=== PATIENT | male | born 1960 | race Caucasian/White ===

== ENCOUNTER → 2020-09-08 | Outpatient (CLI) | payer OTHER ==
--- NOTE | 2020-09-08 10:10 | REP ---
INDICATION: FOLLOW UP/PSORIATIC ARTHRITIS COMPARISON: None. TECHNIQUE: AP, lateral, bilateral oblique views of the right and left ankle. FINDINGS: Right ankle is age-appropriate and without evidence for prior injury, osteoarthritic or inflammatory arthritic changes. Left ankle demonstrates small corticated densities at the medial malleolus suggesting old fracture and is otherwise normal in appearance without evidence for osteoarthritic or inflammatory arthritic changes. IMPRESSION: No evidence for osteoarthritic or inflammatory arthritic changes. Old healed left medial malleolus fracture noted. <Electronically signed by Sachin Manley > 09/08/20 [id number]
--- NOTE | 2020-09-08 10:11 | REP ---
INDICATION: FOLLOW UP/PSORIATIC ARTHRITIS COMPARISON: None. TECHNIQUE: AP, lateral, bilateral oblique views right and left foot. FINDINGS: The osseous structures and joint spaces are intact and normal bilaterally. There is no evidence for acute or healed injury. No evidence for osteoarthritic or inflammatory arthritic changes. Surrounding soft tissues are unremarkable. IMPRESSION: Normal age-appropriate bilateral foot radiographs. No evidence for osteoarthritic or inflammatory arthritic changes. <Electronically signed by Sachin Manley > 09/08/20 1007
== END ==
LOC: M RAD 08:51
PROVIDERS: ATTEND Surgery
DX: M19.90 Unspecified osteoarthritis, unspecified site (principal)

== ENCOUNTER → 2020-09-15 | Outpatient (CLI) | payer OTHER ==
--- NOTE | 2020-09-16 05:49 | REP ---
INDICATION: RIGHT SHOULDER PAIN COMPARISON: None. TECHNIQUE: Internal rotation, external rotation, and Y view. FINDINGS: No acute fracture or dislocation. The acromioclavicular and glenohumeral joints are intact. External rotation view suggests a small 4 mm calcified chronic density inferior to the glenoid which should be correlated clinically. IMPRESSION: Relatively normal examination. A small 4 mm corticated chronic density is identified inferior to the glenoid rim. <Electronically signed by Sachin Manley > 09/16/20 [id number]
== END ==
LOC: M RAD 08:37
PROVIDERS: ATTEND Surgery
DX: M25.511 Pain in right shoulder (principal)

== ENCOUNTER 2020-10-25 09:14 | Emergency (ER) | payer OTHER ==
[~2020-10-25] VITALS: Ht 172.7 cm; Wt 86.4 kg
[2020-10-25] MEDS ORDERED: GI COCKTAIL 50ML BTL(HYOSCYAMINE/MAALOX/LIDOCAINE VISCOUS)(1:3:1) PO ONE (09:30)
[2020-10-25 10:08] LABS: BASO % 0.5 % (0.0-1.0); EOS # 0.1 10^3/uL (0.0-0.5); EOS % 1.4 % (0.0-3.0); HEMATOCRIT 44.4 % (42.0-52.0); HEMOGLOBIN 14.3 g/dl (13.5-17.5); LYMPH % 27.2 % (24.0-44.0); MEAN CORPUSCULAR HEMOGLOBIN 27.6 pg (27.0-33.0); MEAN CORPUSCULAR HGB CONC 32.2 g/dl (32.0-36.5); MEAN CORPUSCULAR VOLUME 85.7 fl (80.0-96.0); MONO # 0.8 10^3/uL (0.0-0.8); MONO % 10.7 % (0.0-5.0); NEUTROPHILS # 4.4 10^3/uL (1.5-8.5); NEUTROPHILS % 59.8 % (36.0-66.0); PLATELET COUNT, AUTOMATED 220 10^3/uL (150-450); RED BLOOD COUNT 5.18 10^6/uL (4.30-6.10); WHITE BLOOD COUNT 7.3 10^3/uL (4.0-10.0)
[2020-10-25 10:22] LABS: INR 0.97; PROTHROMBIN TIME 13.1 SECONDS (12.5-14.3)
[2020-10-25 10:24] LABS: ERYTHROCYTE SEDIMENTATION RATE 5 mm/hr (0-20)
[2020-10-25 10:41] LABS: ALBUMIN 3.6 GM/DL (3.2-5.2); ALT/SGPT 35 U/L (12-78); BILIRUBIN,DIRECT 0.2 MG/DL (0.0-0.2); BILIRUBIN,TOTAL 0.6 MG/DL (0.2-1.0); BLOOD UREA NITROGEN 16 MG/DL (7-18); CALCIUM LEVEL 8.9 MG/DL (8.5-10.1); CARBON DIOXIDE LEVEL 29 MEQ/L (21-32); CHLORIDE LEVEL 105 MEQ/L (98-107); CK-MB VALUE MASS 2.4 NG/ML (<3.6); CPK CREATINE PHOSPHOKINASE 118 U/L (39-308); CREATININE FOR GFR 0.88 MG/DL (0.70-1.30); FREE T4 1.03 NG/DL (0.76-1.46); GLOMERULAR FILTRATION RATE > 60.0 (>56); GLUCOSE, FASTING 108 MG/DL (70-100); LIPASE 101 U/L (73-393); MB/CK RELATIVE INDEX 2.03 (< OR =4); NT-PRO BNP 40 PG/ML (<125); POTASSIUM SERUM 4.3 MEQ/L (3.5-5.1); SODIUM LEVEL 138 MEQ/L (136-145); TOTAL PROTEIN 6.8 GM/DL (6.4-8.2); TROPONIN I < 0.02 NG/ML (< 0.10)
--- NOTE | 2020-10-25 11:06 | REP ---
INDICATION: CHEST PAIN. COMPARISON: None. TECHNIQUE: Single AP portable chest with the patient sitting. FINDINGS: The lung hewitt are clear. The cardiac size is normal. The francisco, mediastinum, and skeletal structures are unremarkable. IMPRESSION: Negative portable chest. <Electronically signed by Aroldo Marte > 10/25/20 1104
[2020-10-25] MEDS ORDERED: ISOVUE-370 76% 100ML VIAL As Ordered ONE (11:37)
[2020-10-25] MEDS ORDERED: KETOROLAC 30 MG/ML 1ML VIAL IV ONE (11:45)
[2020-10-25 11:51] LABS: VITAMIN B12 LEVEL 496 PG/ML (247-911)
--- NOTE | 2020-10-25 11:59 | REP ---
INDICATION: left sided chest pain. COMPARISON: Comparison is made with today's portable chest x-ray.. TECHNIQUE: Contrast dose: 75 ML of Isovue [address] technique: Helical scanning is acquired and overlapping 1.5 mm and contiguous 3 mm axial images are reformatted. In addition, maximum intensity projection and multiplanar re-formation images are generated in sagittal and coronal imaging projections. FINDINGS: There is good opacification in the pulmonary arterial tree. There is no evidence of vessel cut off or filling defect to suggest pulmonary embolus. Homogeneous opacity is seen in the thoracic aorta. There is no evidence of aneurysm or dissection. Lung window settings demonstrate no evidence of infiltrate, mass, or significant pulmonary nodule. No pleural or pericardial effusion is seen. No hilar or mediastinal mass or adenopathy is observed. In the upper abdomen, there is no significant abnormality. Bone window settings show no evidence of bony destructive lesion. IMPRESSION: No CT evidence of pulmonary embolus. No active cardiopulmonary disease seen. <Electronically signed by Jose De Jesus Dawkins > 10/25/20 [id number]
[2020-10-25 14:08] LABS: AMPHETAMINES LEVEL URINE NEGATIVE (NEGATIVE); BARBITURATES URINE NEGATIVE (NEGATIVE); BENZODIAZEPINES URINE NEGATIVE (NEGATIVE); CANNABINOIDS URINE NEGATIVE (NEGATIVE); COCAINE METABOLITE URINE NEGATIVE (NEGATIVE); METHADONE URINE NEGATIVE (NEGATIVE); OPIATES URINE NEGATIVE (NEGATIVE); PHENCYCLIDINE URINE NEGATIVE (NEGATIVE)
[2020-10-25 14:47] LABS: CK-MB VALUE MASS 1.8 NG/ML (<3.6); CPK CREATINE PHOSPHOKINASE 102 U/L (39-308); MB/CK RELATIVE INDEX 1.76 (< OR =4); TROPONIN I < 0.02 NG/ML (< 0.10)
[2020-10-25] MEDS ORDERED: KETO10TAB PO (15:10)
[2020-10-25] MEDS ORDERED: CYCL5TAB PO (15:10)
[2020-10-25 16:07] VITALS: BP 178/100
--- NOTE | 2020-10-26 00:32 | ECGEPIP ---
[facility] - ED Test Date: 2020-10-25 Pat Name: LUISA BOYD Department: Room: - Gender: Male Director Of Rehabilitation: margarita : 1960 Requested By: ZEUS Montejo Order Number: [id number] Reading MD: Edwin Ritter Measurements Intervals [place] Rate: 57 P: 24 KS: 150 QRS: -43 QRSD: 134 T: 16 QT: 428 QTc: 420 Interpretive Statements SINUS BRADYCARDIA MARKED LEFT AXIS DEVIATION RIGHT BUNDLE BRANCH BLOCK NO PRIORS FOR COMPARISON Electronically Signed on 10-26-2020 0:31:51 EST by Edwin Ritter
--- NOTE | 2020-10-26 00:41 | ECGEPIP ---
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
== END 2020-10-25 16:11 | disposition home or self-care (01) ==
LOC: M ED 09:14
DX: R07.89 Other chest pain (principal); I10 Essential (primary) hypertension; R60.0 Localized edema; R94.31 Abnormal electrocardiogram [ECG] [EKG]
CPT/HCPCS: 71045; 71275; 80048; 80076; 80307; 82550; 82553; 82607; 83690; 83880; 84439; 84443; 84484; 85025; 85610; 85652; 85730; 86140; 87040; 87631; 93005; 93041; 94760; 96374; 99285; J1885; Q9967